=== PATIENT | male | born 1965 | race Caucasian/White ===

== ENCOUNTER 2019-08-26 14:10 | Inpatient (IN) | payer OTHER ==
[~2019-08-26] VITALS: Ht 175.3 cm; Wt 124.1 kg
[2019-08-26 15:20] LABS: BASOPHILS % (AUTO) 0.5 % (0-1); EOSINOPHILS # (AUTO) 0.1 X10'3 (0-0.9); HEMOGLOBIN 17.4 g/dl (14.0-17.9); LYMPHOCYTES # (AUTO) 1.8 X10'3 (1.1-4.8); MEAN CORPUSCULAR HEMOGLOBIN 30.2 PG (27.0-31.0); MEAN CORPUSCULAR HGB CONC 34.7 g/dL (33.0-36.5); MEAN PLATELET VOLUME 8.2 FL (7.4-10.4); MONOCYTES # (AUTO) 0.8 X10'3 (0-0.9); MONOCYTES % (AUTO) 8.1 % (2-12); NEUTROPHILS # (AUTO) 6.7 X10'3 (1.8-7.7); NEUTROPHILS % (AUTO) 71.4 % (42-75); PLATELET COUNT 300 X10'3 (140-440); RED BLOOD COUNT 5.75 X10'6 (4.70-6.10); RED CELL DISTRIBUTION WIDTH 13.8 % (11.5-14.5); WHITE BLOOD COUNT 9.3 X10'3 (4.5-11.0)
[2019-08-26 15:28] LABS: ALANINE AMINOTRANSFERASE 53 U/L (12-78); ALBUMIN 3.6 G/DL (3.4-5.0); ALBUMIN/GLOBULIN RATIO 0.8 (1.1-1.5); ALKALINE PHOSPHATASE 90 IU/L (46-116); ANION GAP 10 (8-16); ASPARTATE AMINO TRANSFERASE 26 U/L (10-37); BILIRUBIN,TOTAL 0.3 MG/DL (0.1-1.0); BLOOD UREA NITROGEN 10 MG/DL (7-18); BUN/CREATININE RATIO 10.1 (5.4-32.0); CALCIUM 8.7 MG/DL (8.5-10.1); CHLORIDE 103 MMOL/L (99-107); CREATININE 0.99 MG/DL (0.60-1.10); GLUCOSE 141 MG/DL (70-104); POTASSIUM 4.2 MMOL/L (3.5-5.1); SODIUM 137 MMOL/L (135-145); TOTAL CARBON DIOXIDE 24.5 MMOL/L (24-32); TOTAL PROTEIN 7.9 G/DL (6.4-8.2); eGFR 79 ML/MIN
[2019-08-26 17:01] LABS: CLARITY,URINE CLEAR (Clear); COLOR,URINE YELLOW (Yellow); GLUCOSE, URINE NEGATIVE (Neg); KETONES,URINE NEGATIVE (Neg); LEUKOCYTE ESTERASE ,URINE NEGATIVE (Neg); NITRITES, URINE NEGATIVE (Neg); OCCULT BLOOD,URINE NEGATIVE (Neg); PROTEIN,URINE NEGATIVE (Neg); UROBILINOGEN,URINE 0.2 E.U/dL (0.2-1.0)
[2019-08-26 17:03] LABS: UA COLLECTION TYPE VOIDED
[2019-08-26 17:07] LABS: LIPASE 812 U/L (73-393)
[2019-08-26] MEDS ORDERED: meclizine 12.5mg tablet PO ONE (17:30)
[2019-08-26] MEDS ORDERED: LORazepam 1 MG tablet PO ONE (17:30)
[2019-08-26] MEDS ORDERED: normal saline 1000ML IV soln IVB ONE (17:35)
[2019-08-26] MEDS ORDERED: ketorolac tromethamine 15mg/ml inj. IV ONE (17:40)
[2019-08-26] MEDS ORDERED: magnesium hydroxide 30ml (MOM) UD suspension PO PRN (20:10)
[2019-08-26] MEDS ORDERED: magnesium 2GM in 50ml NS 50 ML IV PRN (20:10)
[2019-08-26] MEDS ORDERED: mag hydrox/Alum hydrox/simeth 30ml oral suspension PO PRN (20:10)
[2019-08-26] MEDS ORDERED: ketorolac trometh. 30mg/ml inj. IV PRN (20:10)
[2019-08-26] MEDS ORDERED: potassium CL 10mEq/100ml bag 100 ML IV PRN ×2 (20:10)
[2019-08-26] MEDS ORDERED: diphenhydrAMINE 50 mg/ml inj IV PRN (20:10)
[2019-08-26] MEDS ORDERED: magnesium Cl slow-release 64mg tablet PO PRN (20:10)
[2019-08-26] MEDS ORDERED: ondansetron/PF 4mg/2ml inj IV PRN (20:10)
[2019-08-26] MEDS ORDERED: potassium Cl 20 mEq SR tablet PO PRN ×2 (20:10)
[2019-08-26] MEDS ORDERED: magnesium 4gm in 100ml NS 100 ML IV PRN (20:10)
[2019-08-26] MEDS ORDERED: morphine 2 MG/ML inj. syringe IV ONE (20:25)
[2019-08-26] MEDS: normal saline 1000ml 1,000 ML IV SCH (20:45)
[2019-08-26] MEDS ORDERED: LISI40TA4 PO (21:47)
[2019-08-26 22:10] VITALS: BP 135/83
[2019-08-27] MEDS: morphine 4 MG/ML inj SYRINge IV PRN ×2 (03:07→17:57)
[2019-08-27] MEDS: normal saline 1000ml 1,000 ML IV SCH ×2 (05:22→20:11)
[2019-08-27] MEDS ORDERED: cyclobenzaprine 10mg tablet PO PRN (05:30)
[2019-08-27 06:00] VITALS: BP 107/53
[2019-08-27 07:17] LABS: BASOPHILS % (AUTO) 0.3 % (0-1); EOSINOPHILS # (AUTO) 0.2 X10'3 (0-0.9); HEMATOCRIT 44.5 % (42.0-52.0); LYMPHOCYTES # (AUTO) 2.2 X10'3 (1.1-4.8); LYMPHOCYTES % (AUTO) 25.1 % (21-51); MEAN CORPUSCULAR HEMOGLOBIN 29.5 PG (27.0-31.0); MEAN CORPUSCULAR HGB CONC 33.6 g/dL (33.0-36.5); MEAN CORPUSCULAR VOLUME 87.6 FL (78-98); MEAN PLATELET VOLUME 8.3 FL (7.4-10.4); MONOCYTES # (AUTO) 0.8 X10'3 (0-0.9); MONOCYTES % (AUTO) 9.5 % (2-12); NEUTROPHILS # (AUTO) 5.4 X10'3 (1.8-7.7); NEUTROPHILS % (AUTO) 63.1 % (42-75); PLATELET COUNT 263 X10'3 (140-440); RED BLOOD COUNT 5.08 X10'6 (4.70-6.10); RED CELL DISTRIBUTION WIDTH 14.3 % (11.5-14.5); WHITE BLOOD COUNT 8.6 X10'3 (4.5-11.0)
[2019-08-27 07:24] LABS: CHLORIDE 105 MMOL/L (99-107); GLUCOSE 97 MG/DL (70-104); POTASSIUM 4.1 MMOL/L (3.5-5.1); SODIUM 138 MMOL/L (135-145); TOTAL CARBON DIOXIDE 25.9 MMOL/L (24-32)
[2019-08-27 07:25] LABS: ALANINE AMINOTRANSFERASE 47 U/L (12-78); ALBUMIN 3.1 G/DL (3.4-5.0); ALBUMIN/GLOBULIN RATIO 0.9 (1.1-1.5); ALKALINE PHOSPHATASE 73 IU/L (46-116); ANION GAP 7 (8-16); ASPARTATE AMINO TRANSFERASE 27 U/L (10-37); BILIRUBIN,TOTAL 0.4 MG/DL (0.1-1.0); BLOOD UREA NITROGEN 9 MG/DL (7-18); BUN/CREATININE RATIO 9.7 (5.4-32.0); CREATININE 0.93 MG/DL (0.60-1.10); TOTAL PROTEIN 6.6 G/DL (6.4-8.2); eGFR 85 ML/MIN
[2019-08-27 07:26] LABS: PHOSPHORUS 3.6 MG/DL (2.3-4.5)
[2019-08-27] MEDS: K and/or MAG REPLACEMENT MC SCH ×2 (08:00→20:00)
[2019-08-27 09:52] LABS: LIPASE 116 U/L (73-393)
[2019-08-27 10:00] VITALS: BP 125/70
[2019-08-27] MEDS ORDERED: dextrose ORAL solution 15 GM/59 ML bottle PO PRN ×2 (10:15)
[2019-08-27] MEDS ORDERED: glucagon, human recombinant 1mg kit SUBCUT PRN (10:15)
[2019-08-27] MEDS ORDERED: dextrose 50%-water 50ml dispensing syringe IV PRN ×2 (10:15)
[2019-08-27] MEDS ORDERED: insulin Lispro (HumaLOG) vial - multi-dose SQ SCH (10:15)
[2019-08-27 11:18] LABS: CHOL/HDL RATIO 4.3 (0.00-4.99); CHOLESTEROL 138 MG/DL (0-200); HDL CHOLESTEROL 32 MG/DL (35-60); LDL CHOLESTEROL 92 MG/DL (50-100); TRIGLYCERIDES 139 MG/DL (20-135)
[2019-08-27] MEDS: enoxaparin 40mg/0.4ml syringe SQ SCH (13:08)
[2019-08-27] MEDS: pantoprazole 40 MG vial IV SCH (13:08)
[2019-08-27] MEDS: lisinopril 20mg tablet PO SCH (17:58)
[2019-08-27] MEDS: docusate sod 100mg capsule PO SCH ×2 (17:58→20:12)
[2019-08-27 18:00] VITALS: BP 115/59
--- NOTE | 2019-08-27 18:00 | NUR ---
RECEIVED REPORT FROM CLARISSE LUNA AND ASSUMED PATIENT CARE
--- NOTE | 2019-08-27 18:29 | NUR ---
Problems reprioritized. Patient report given, questions answered & plan of care reviewed with Sean LUNA. Addendum: 08/27/19 at 1829 by Pamela Robin RN Yadira LUNA
[2019-08-27] MEDS ORDERED: insulin glargine (Lantus) pen - multi-dose SQ SCH (21:00)
[2019-08-27 22:00] VITALS: BP 100/58
[2019-08-28] MEDS: normal saline 1000ml 1,000 ML IV SCH ×2 (02:08→12:08)
[2019-08-28 06:00] VITALS: BP 90/52
--- NOTE | 2019-08-28 06:18 | NUR ---
REPORT GIVEN TO OLIVE LUNA
--- NOTE | 2019-08-28 06:30 | NUR ---
Patient in room ORTHO 4010. I have received report from Yadira LUNA and had the opportunity to ask questions and assume patient care.
--- NOTE | 2019-08-28 06:38 | NUR ---
Patient in room ORTHO 4010. I have received report from Yadira LUNA and had the opportunity to ask questions and assume patient care.
[2019-08-28 07:40] LABS: BASOPHILS % (AUTO) 0.4 % (0-1); EOSINOPHILS # (AUTO) 0.1 X10'3 (0-0.9); EOSINOPHILS % (AUTO) 1.2 % (0-6); HEMATOCRIT 45.6 % (42.0-52.0); HEMOGLOBIN 15.6 g/dl (14.0-17.9); LYMPHOCYTES # (AUTO) 1.4 X10'3 (1.1-4.8); LYMPHOCYTES % (AUTO) 18.9 % (21-51); MEAN CORPUSCULAR HEMOGLOBIN 30.3 PG (27.0-31.0); MEAN CORPUSCULAR HGB CONC 34.1 g/dL (33.0-36.5); MEAN CORPUSCULAR VOLUME 88.7 FL (78-98); MEAN PLATELET VOLUME 7.8 FL (7.4-10.4); MONOCYTES # (AUTO) 0.8 X10'3 (0-0.9); MONOCYTES % (AUTO) 10.1 % (2-12); NEUTROPHILS # (AUTO) 5.2 X10'3 (1.8-7.7); NEUTROPHILS % (AUTO) 69.4 % (42-75); PLATELET COUNT 236 X10'3 (140-440); RED BLOOD COUNT 5.14 X10'6 (4.70-6.10); RED CELL DISTRIBUTION WIDTH 14.1 % (11.5-14.5); WHITE BLOOD COUNT 7.5 X10'3 (4.5-11.0)
[2019-08-28] MEDS: docusate sod 100mg capsule PO SCH (07:56)
[2019-08-28] MEDS: pantoprazole 40 MG vial IV SCH (07:56)
[2019-08-28] MEDS: enoxaparin 40mg/0.4ml syringe SQ SCH (07:57)
[2019-08-28] MEDS: lisinopril 20mg tablet PO SCH (07:58)
[2019-08-28 07:59] LABS: ALANINE AMINOTRANSFERASE 48 U/L (12-78); ALBUMIN 3.1 G/DL (3.4-5.0); ALBUMIN/GLOBULIN RATIO 0.8 (1.1-1.5); ALKALINE PHOSPHATASE 74 IU/L (46-116); ANION GAP 8 (8-16); ASPARTATE AMINO TRANSFERASE 35 U/L (10-37); BILIRUBIN,TOTAL 0.4 MG/DL (0.1-1.0); BLOOD UREA NITROGEN 7 MG/DL (7-18); BUN/CREATININE RATIO 7.4 (5.4-32.0); CALCIUM 8.6 MG/DL (8.5-10.1); CHLORIDE 107 MMOL/L (99-107); CREATININE 0.95 MG/DL (0.60-1.10); GLUCOSE 108 MG/DL (70-104); MAGNESIUM 2.2 MG/DL (1.5-2.4); PHOSPHORUS 3.4 MG/DL (2.3-4.5); POTASSIUM 4.3 MMOL/L (3.5-5.1); SODIUM 139 MMOL/L (135-145); TOTAL PROTEIN 6.9 G/DL (6.4-8.2); eGFR 83 ML/MIN
[2019-08-28] MEDS: K and/or MAG REPLACEMENT MC SCH (08:00)
[2019-08-28] MEDS: morphine 4 MG/ML inj SYRINge IV PRN (08:08)
[2019-08-28 10:00] VITALS: BP 107/51
[2019-08-28] MEDS ORDERED: METF-950 PO (10:43)
[2019-08-28] MEDS ORDERED: PANT-47 PO (10:43)
[2019-08-28] MEDS ORDERED: bisacodyl 10mg suppository rectal RC STA (11:09)
[2019-08-28] MEDS ORDERED: HYDROcodone/acetaminophen 5mg/325mg tablet PO PRN (11:10)
[2019-08-28 11:37] LABS: LIPASE 133 U/L (73-393)
--- NOTE | 2019-08-28 12:00 | NUR ---
Priyanka, 5199, [place], Lipase results 133
[2019-08-28] MEDS ORDERED: TRAM50TA2 PO (12:52)
--- NOTE | 2019-08-28 14:08 | NUR ---
Safe DC. All personal items with patient. Left in personal vehicle with spouse.
[2019-08-29] MEDS ORDERED: pantoprazole 40mg Tablet.DR PO SCH (07:30)
== END 2019-08-28 14:18 | disposition home or self-care (01) | DRG 440 ==
LOC: ER 14:12 → ED HOLD 20:08 → ORTHO 4S 22:27
PROVIDERS: ADMIT Family Medicine; ATTEND Family Medicine
DX: K85.90 Acute pancreatitis without necrosis or infection, unspecified (principal); E11.9 Type 2 diabetes mellitus without complications; G89.29 Other chronic pain; M54.9 Dorsalgia, unspecified; I10 Essential (primary) hypertension; Z79.899 Other long term (current) drug therapy; Z88.8 Allergy status to other drugs, medicaments and biological substances
CPT/HCPCS: 36415; 71045; 74176; 76700; 80053; 80061; 81003; 82948; 83036; 83690; 83735; 84100; 84484; 85025; 87081; 93005; 96360; 96361; 99285; C9113; G0378; J1650; J1815; J2270; J7030; J8597

== ENCOUNTER 2019-09-03 12:18 | Inpatient (IN) | payer BC, OTHER ==
[~2019-09-03] VITALS: Ht 175.3 cm; Wt 120.8 kg
[~2019-09-03 12:18] MED LIST: LISI40TA4 PO; METF-950 PO; PANT-47 PO; TRAM50TA2 PO
[2019-09-03 12:47] LABS: BASOPHILS # (AUTO) 0.1 X10'3 (0-0.2); BASOPHILS % (AUTO) 0.5 % (0-1); EOSINOPHILS # (AUTO) 0.1 X10'3 (0-0.9); EOSINOPHILS % (AUTO) 0.4 % (0-6); HEMATOCRIT 50.9 % (42.0-52.0); HEMOGLOBIN 17.3 g/dl (14.0-17.9); LYMPHOCYTES # (AUTO) 2.1 X10'3 (1.1-4.8); LYMPHOCYTES % (AUTO) 17.2 % (21-51); MEAN CORPUSCULAR HEMOGLOBIN 29.8 PG (27.0-31.0); MEAN CORPUSCULAR VOLUME 87.5 FL (78-98); MEAN PLATELET VOLUME 8.4 FL (7.4-10.4); NEUTROPHILS # (AUTO) 8.8 X10'3 (1.8-7.7); NEUTROPHILS % (AUTO) 73.9 % (42-75); PLATELET COUNT 330 X10'3 (140-440); RED BLOOD COUNT 5.82 X10'6 (4.70-6.10); RED CELL DISTRIBUTION WIDTH 13.9 % (11.5-14.5); WHITE BLOOD COUNT 11.9 X10'3 (4.5-11.0)
[2019-09-03 13:09] LABS: ALANINE AMINOTRANSFERASE 66 U/L (12-78); AMYLASE 260 U/L (25-115); ANION GAP 12 (8-16); ASPARTATE AMINO TRANSFERASE 43 U/L (10-37); BILIRUBIN,TOTAL 0.5 MG/DL (0.1-1.0); CHLORIDE 103 MMOL/L (99-107); CREATININE 1.05 MG/DL (0.60-1.10); LIPASE 959 U/L (73-393); SODIUM 138 MMOL/L (135-145); TOTAL CARBON DIOXIDE 22.9 MMOL/L (24-32); TOTAL PROTEIN 8.3 G/DL (6.4-8.2); eGFR 74 ML/MIN
[2019-09-03 13:26] LABS: ALBUMIN 4.1 G/DL (3.4-5.0); ALKALINE PHOSPHATASE 80 IU/L (46-116); BLOOD UREA NITROGEN 11 MG/DL (7-18); BUN/CREATININE RATIO 10.5 (5.4-32.0); CALCIUM 9.1 MG/DL (8.5-10.1); GLUCOSE 106 MG/DL (70-104)
[2019-09-03 14:47] LABS: CLARITY,URINE CLEAR (Clear); COLOR,URINE YELLOW (Yellow); GLUCOSE, URINE NEGATIVE (Neg); KETONES,URINE NEGATIVE (Neg); LEUKOCYTE ESTERASE ,URINE NEGATIVE (Neg); NITRITES, URINE NEGATIVE (Neg); OCCULT BLOOD,URINE NEGATIVE (Neg); PH,URINE 5.5 (4.8-8.0); PROTEIN,URINE TRACE mg/dl (Neg); UROBILINOGEN,URINE 0.2 E.U/dL (0.2-1.0)
[2019-09-03 14:48] LABS: UA COLLECTION TYPE VOIDED
[2019-09-03 14:58] LABS: BACTERIA,URINE NONE SEEN /HPF (Neg); MUCUS STRANDS MODERATE /LPF (Neg); RBC,URINE NONE SEEN /HPF (0-2); SQUAMOUS EPITHELIAL CELL,UR FEW /LPF (FEW); WBC,URINE 0-4 /HPF (0-4)
[2019-09-03 14:59] LABS: COARSE GRANULAR CAST 0-3 /LPF (NEGATIVE)
[2019-09-03] MEDS ORDERED: fentaNYL/PF 50MCG/1 ML 2ML syringe IV ONE ×2 (15:40→17:15)
[2019-09-03] MEDS ORDERED: ondansetron/PF 4mg/2ml inj IV ONE (15:40)
[2019-09-03] MEDS ORDERED: dexamethasone sod phosphate 10mg/ml inj IV STA (16:16)
[2019-09-03] MEDS ORDERED: diphenhydrAMINE 50 mg/ml inj IV ONE (16:20)
[2019-09-03] MEDS ORDERED: iohexol 300mg/ml 100ml inj. ONE (16:35)
[2019-09-03] MEDS ORDERED: MESSAGE TO NURSING PO ONE (17:10)
[2019-09-03] MEDS ORDERED: metoclopramide 5 mg/ml inj IV ONE (17:15)
[2019-09-03] MEDS ORDERED: LORazepam 2 mg/ml vial IV ONE (17:15)
[2019-09-03] MEDS ORDERED: morphine 2 MG/ML inj. syringe IV PRN (17:35)
[2019-09-03] MEDS ORDERED: magnesium hydroxide 30ml (MOM) UD suspension PO PRN (17:35)
[2019-09-03] MEDS ORDERED: METF-436 PO (17:37)
[2019-09-03] MEDS ORDERED: TRAM50TA2 PO (17:37)
[2019-09-03] MEDS: normal saline 1000ml 1,000 ML IV SCH (18:38)
[2019-09-03] MEDS ORDERED: traMADol 50MG tablet PO PRN (19:00)
[2019-09-03 21:00] VITALS: BP 137/76
--- NOTE | 2019-09-03 21:00 | NUR ---
Received report from Keiko LUNA. Will assume patient care.
[2019-09-03] MEDS: heparin, porcine 5000 units/ml vial SQ SCH (21:39)
[2019-09-03] MEDS: morphine 2 MG/ML inj. syringe IV PRN (21:40)
[2019-09-04] VITALS: BP 109/71
[2019-09-04] MEDS: morphine 2 MG/ML inj. syringe IV PRN ×7 (01:51→22:20)
[2019-09-04] MEDS: normal saline 1000ml 1,000 ML IV SCH ×2 (04:18→14:57)
[2019-09-04] MEDS ORDERED: MECL-159 PO ×2 (05:11→05:18)
--- NOTE | 2019-09-04 05:30 | NUR ---
Patient got up this morning to ambulate. Afterwards complained of dizziness and vertigo laying down in bed. Patient states when he was here on August 26, he was having veritigo and MD prescribed him with meclizine. Dr. Hoyos notified, and order PRN Meclizine for his dizziness/vertigo.
[2019-09-04 05:48] LABS: BASOPHILS % (AUTO) 0.2 % (0-1); EOSINOPHILS % (AUTO) 0 % (0-6); HEMATOCRIT 47.2 % (42.0-52.0); HEMOGLOBIN 16.1 g/dl (14.0-17.9); LYMPHOCYTES # (AUTO) 1.1 X10'3 (1.1-4.8); LYMPHOCYTES % (AUTO) 9.7 % (21-51); MEAN CORPUSCULAR HEMOGLOBIN 30.2 PG (27.0-31.0); MEAN CORPUSCULAR HGB CONC 34.2 g/dL (33.0-36.5); MEAN CORPUSCULAR VOLUME 88.3 FL (78-98); MEAN PLATELET VOLUME 8.4 FL (7.4-10.4); MONOCYTES # (AUTO) 0.2 X10'3 (0-0.9); MONOCYTES % (AUTO) 2.2 % (2-12); NEUTROPHILS # (AUTO) 9.8 X10'3 (1.8-7.7); NEUTROPHILS % (AUTO) 87.9 % (42-75); PLATELET COUNT 269 X10'3 (140-440); RED BLOOD COUNT 5.35 X10'6 (4.70-6.10); RED CELL DISTRIBUTION WIDTH 13.8 % (11.5-14.5); WHITE BLOOD COUNT 11.2 X10'3 (4.5-11.0)
[2019-09-04 05:55] LABS: ALBUMIN 3.4 G/DL (3.4-5.0); ANION GAP 12 (8-16); BLOOD UREA NITROGEN 11 MG/DL (7-18); BUN/CREATININE RATIO 12.5 (5.4-32.0); CALCIUM 9.1 MG/DL (8.5-10.1); CHLORIDE 103 MMOL/L (99-107); CREATININE 0.88 MG/DL (0.60-1.10); GLUCOSE 138 MG/DL (70-104); POTASSIUM 4.6 MMOL/L (3.5-5.1); SODIUM 133 MMOL/L (135-145); TOTAL CARBON DIOXIDE 17.9 MMOL/L (24-32); eGFR 90 ML/MIN
[2019-09-04] MEDS: meclizine 12.5mg tablet PO PRN (05:58)
--- NOTE | 2019-09-04 06:24 | NUR ---
Problems reprioritized. Patient report given, questions answered & plan of care reviewed with Cecilia LUNA.
[2019-09-04 07:00] VITALS: BP 98/56
[2019-09-04] MEDS: lisinopril 20mg tablet PO SCH (07:32)
[2019-09-04] MEDS: heparin, porcine 5000 units/ml vial SQ SCH ×2 (07:41→20:17)
[2019-09-04 11:00] VITALS: BP 120/80
[2019-09-04] MEDS: ondansetron/PF 4mg/2ml inj IV PRN ×2 (12:50→22:20)
[2019-09-04] MEDS: mag hydrox/Alum hydrox/simeth 30ml oral suspension PO PRN ×2 (16:02→22:19)
--- NOTE | 2019-09-04 16:55 | NUR ---
Student documentation: Anuradha Pham RN with [facility], reviewed all interventions, assessments performed and documented by Cheryl TUBBS.
--- NOTE | 2019-09-04 17:32 | NUR ---
Initial: Pt admit w/ acute pancreatitis lipase 959 and amylase 260 both elevated. Hx new DX T2DM prior admit last week per EMR; no nutrition consult prior admit last week so not seen by RD. No lipid panel this admit though last week admit only TG slight elevation at 139. Pt seen by RD for written/verbal DM and pancreatitis diet eds w/ RD and CDE course contact information provided. RD provided thorough review of DM diet guidelines, signs/symptoms of hypo/hyperglycemia, importance of routine GLU checks, taking DM medication per Rx, ketone test strips, appropriate snacks, high protien foods, and proper hydration. Pt reports ate fast food and listed many high-fat meats as main diet following recent discharge. RD also educated pt on all fat-containing foods regarding pancreatitis nutrition therapy and answered pt diet questions/concerns. Pt reports no further diet questions at this time. Currently NPO w/ LBM 09/02. Will monitor for PO diet advancement and tolerance. Rec: 1. advance diet per MD to carb controlled/heart healthy/low fat 2. monitor for ONS needs once diet advances 3. bowel care as needed 4. wt per rx Addendum: 09/04/19 at [address] Amended: Links added.
--- NOTE | 2019-09-04 18:30 | NUR ---
Patient in room NICOLLE 348. I have received report from Cecilia LUNA and had the opportunity to ask questions and assume patient care.
--- NOTE | 2019-09-04 18:39 | NUR ---
Problems reprioritized. Patient report given, questions answered & plan of care reviewed with JEREMY Durán.
[2019-09-04 20:00] VITALS: BP 123/73
[2019-09-05] VITALS: BP 93/50
[2019-09-05] MEDS: normal saline 1000ml 1,000 ML IV SCH ×3 (00:14→20:04)
[2019-09-05 05:24] LABS: BASOPHILS % (AUTO) 0.2 % (0-1); EOSINOPHILS % (AUTO) 0.1 % (0-6); HEMATOCRIT 42.9 % (42.0-52.0); HEMOGLOBIN 14.7 g/dl (14.0-17.9); LYMPHOCYTES % (AUTO) 20.1 % (21-51); MEAN CORPUSCULAR HEMOGLOBIN 30.3 PG (27.0-31.0); MEAN CORPUSCULAR HGB CONC 34.2 g/dL (33.0-36.5); MEAN CORPUSCULAR VOLUME 88.5 FL (78-98); MEAN PLATELET VOLUME 8.7 FL (7.4-10.4); MONOCYTES # (AUTO) 0.9 X10'3 (0-0.9); MONOCYTES % (AUTO) 9.1 % (2-12); NEUTROPHILS % (AUTO) 70.5 % (42-75); PLATELET COUNT 275 X10'3 (140-440); RED BLOOD COUNT 4.85 X10'6 (4.70-6.10); RED CELL DISTRIBUTION WIDTH 13.8 % (11.5-14.5)
[2019-09-05 05:59] LABS: ALBUMIN 3.2 G/DL (3.4-5.0); ANION GAP 6 (8-16); BLOOD UREA NITROGEN 14 MG/DL (7-18); BUN/CREATININE RATIO 14.6 (5.4-32.0); CALCIUM 7.9 MG/DL (8.5-10.1); CHLORIDE 105 MMOL/L (99-107); CREATININE 0.96 MG/DL (0.60-1.10); GLUCOSE 88 MG/DL (70-104); LIPASE 104 U/L (73-393); SODIUM 139 MMOL/L (135-145); TOTAL CARBON DIOXIDE 27.8 MMOL/L (24-32); eGFR 82 ML/MIN
--- NOTE | 2019-09-05 06:25 | NUR ---
Patient in room NICOLLE 348. I have received report from JEREMY Durán and had the opportunity to ask questions and assume patient care.
--- NOTE | 2019-09-05 06:30 | NUR ---
Problems reprioritized. Patient report given, questions answered & plan of care reviewed with Carlene LUNA.
[2019-09-05] MEDS: pantoprazole 40mg Tablet.DR PO SCH (07:15)
[2019-09-05] MEDS: lisinopril 20mg tablet PO SCH (07:17)
[2019-09-05] MEDS: heparin, porcine 5000 units/ml vial SQ SCH ×2 (07:18→20:05)
[2019-09-05] MEDS: morphine 2 MG/ML inj. syringe IV PRN (07:30)
[2019-09-05 08:05] VITALS: BP 111/64
[2019-09-05] MEDS: ondansetron/PF 4mg/2ml inj IV PRN (09:30)
[2019-09-05 12:00] VITALS: BP_SYST 59
[2019-09-05] MEDS: meclizine 12.5mg tablet PO PRN (15:37)
[2019-09-05 15:39] LABS: CLARITY,URINE CLEAR (Clear); COLOR,URINE YELLOW (Yellow); GLUCOSE, URINE NEGATIVE (Neg); KETONES,URINE NEGATIVE (Neg); LEUKOCYTE ESTERASE ,URINE NEGATIVE (Neg); NITRITES, URINE NEGATIVE (Neg); OCCULT BLOOD,URINE NEGATIVE (Neg); PROTEIN,URINE NEGATIVE (Neg)
[2019-09-05 15:40] LABS: UA COLLECTION TYPE VOIDED
[2019-09-05 18:15] VITALS: BP 104/60
--- NOTE | 2019-09-05 18:40 | NUR ---
Patient in room NICOLLE 341. I have received report from JEREMY Concepcion and had the opportunity to ask questions and assume patient care.
--- NOTE | 2019-09-05 18:42 | NUR ---
Problems reprioritized. Patient report given, questions answered & plan of care reviewed with JEREMY Álvarez. Pt started clear liquid diet for lunch. c/o diarrhea x4 this afternoon. will continue to monitor.
[2019-09-05] MEDS: metFORMIN 500mg tablet PO SCH (20:04)
[2019-09-06 00:15] VITALS: BP 98/57
[2019-09-06] MEDS: normal saline 1000ml 1,000 ML IV SCH (05:22)
[2019-09-06 05:43] LABS: BASOPHILS % (AUTO) 0.3 % (0-1); EOSINOPHILS # (AUTO) 0.1 X10'3 (0-0.9); EOSINOPHILS % (AUTO) 0.8 % (0-6); HEMATOCRIT 42.2 % (42.0-52.0); HEMOGLOBIN 14.3 g/dl (14.0-17.9); LYMPHOCYTES # (AUTO) 2.3 X10'3 (1.1-4.8); LYMPHOCYTES % (AUTO) 30.9 % (21-51); MEAN CORPUSCULAR HEMOGLOBIN 30.1 PG (27.0-31.0); MEAN CORPUSCULAR HGB CONC 33.9 g/dL (33.0-36.5); MEAN CORPUSCULAR VOLUME 88.8 FL (78-98); MEAN PLATELET VOLUME 8.9 FL (7.4-10.4); MONOCYTES # (AUTO) 0.8 X10'3 (0-0.9); MONOCYTES % (AUTO) 10.2 % (2-12); NEUTROPHILS # (AUTO) 4.3 X10'3 (1.8-7.7); NEUTROPHILS % (AUTO) 57.8 % (42-75); PLATELET COUNT 217 X10'3 (140-440); RED BLOOD COUNT 4.76 X10'6 (4.70-6.10); RED CELL DISTRIBUTION WIDTH 13.8 % (11.5-14.5); WHITE BLOOD COUNT 7.4 X10'3 (4.5-11.0)
[2019-09-06 05:57] LABS: ANION GAP 7 (8-16); BLOOD UREA NITROGEN 9 MG/DL (7-18); BUN/CREATININE RATIO 10.3 (5.4-32.0); CALCIUM 7.9 MG/DL (8.5-10.1); CHLORIDE 109 MMOL/L (99-107); CREATININE 0.87 MG/DL (0.60-1.10); GLUCOSE 77 MG/DL (70-104); SODIUM 141 MMOL/L (135-145); TOTAL CARBON DIOXIDE 25.5 MMOL/L (24-32); eGFR > 90 ML/MIN
--- NOTE | 2019-09-06 06:15 | NUR ---
Problems reprioritized. Patient report given, questions answered & plan of care reviewed with JEREMY Roblero.
[2019-09-06 07:03] VITALS: BP 117/62
[2019-09-06] MEDS: metFORMIN 500mg tablet PO SCH (07:48)
[2019-09-06] MEDS: lisinopril 20mg tablet PO SCH (07:48)
[2019-09-06] MEDS: pantoprazole 40mg Tablet.DR PO SCH (07:48)
[2019-09-06] MEDS: heparin, porcine 5000 units/ml vial SQ SCH (07:49)
[2019-09-06] MEDS: ondansetron/PF 4mg/2ml inj IV PRN (09:28)
[2019-09-06] MEDS ORDERED: OMEP20CA15 PO (11:42)
[2019-09-06] MEDS ORDERED: ONDA4TAB6 PO (11:42)
[2019-09-06] MEDS ORDERED: LISI-600 PO (11:42)
[2019-09-06 12:00] VITALS: BP 120/50
--- NOTE | 2019-09-06 13:26 | NUR ---
PT DISCHARGED IN STABLE CONDITION. LEFT FACILITY IN PRIVATE VEHICLE WITH . IV DC CANULA INTACT. FOLLOW UP INSTRUCTIONS GIVEN ALL QUESTIONS ANSWERED. ALL BELONGINGS IN HAND. Addendum: 09/06/19 at 1327 by Belia Stark RN Amended: Links added.
== END 2019-09-06 14:14 | disposition home or self-care (01) | DRG 440 ==
LOC: ER 12:18 → ED HOLD 17:34 → SUR 3N 20:59
PROVIDERS: ADMIT Family Medicine; ATTEND Internal Medicine
DX: K85.90 Acute pancreatitis without necrosis or infection, unspecified (principal); E11.9 Type 2 diabetes mellitus without complications; K86.1 Other chronic pancreatitis; E66.01 Morbid (severe) obesity due to excess calories; I10 Essential (primary) hypertension; Z87.442 Personal history of urinary calculi; Z68.39 Body mass index [BMI] 39.0-39.9, adult; Z88.8 Allergy status to other drugs, medicaments and biological substances
CPT/HCPCS: 36415; 74177; 80048; 80053; 81001; 81003; 82150; 82948; 83605; 83690; 84145; 85025; 87040; 87081; 96374; 96375; 96376; 99285; G0378; J1100; J1200; J1644; J2060; J2270; J2405; J2765; J3010; J7030; J8597; Q9967

== ENCOUNTER 2019-11-19 07:57 | Inpatient (IN) | payer BC, OTHER ==
[~2019-11-19] VITALS: Ht 175.3 cm; Wt 116.0 kg
[~2019-11-19 07:57] MED LIST changes: -LISI40TA4 PO; +MECL-159 PO; +METF-436 PO; -METF-950 PO; +OMEP20CA15 PO; +ONDA4TAB6 PO; -PANT-47 PO
[2019-11-19 08:25] LABS: BASOPHILS % (AUTO) 0.4 % (0-1); EOSINOPHILS # (AUTO) 0.1 X10'3 (0-0.9); EOSINOPHILS % (AUTO) 1.3 % (0-6); HEMATOCRIT 46.6 % (42.0-52.0); HEMOGLOBIN 15.9 g/dl (14.0-17.9); LYMPHOCYTES % (AUTO) 12.6 % (21-51); MEAN CORPUSCULAR HEMOGLOBIN 30.4 PG (27.0-31.0); MEAN CORPUSCULAR HGB CONC 34.1 g/dL (33.0-36.5); MEAN CORPUSCULAR VOLUME 89.3 FL (78-98); MEAN PLATELET VOLUME 8.5 FL (7.4-10.4); MONOCYTES # (AUTO) 0.6 X10'3 (0-0.9); MONOCYTES % (AUTO) 7.1 % (2-12); NEUTROPHILS # (AUTO) 6.5 X10'3 (1.8-7.7); NEUTROPHILS % (AUTO) 78.6 % (42-75); PLATELET COUNT 234 X10'3 (140-440); RED BLOOD COUNT 5.21 X10'6 (4.70-6.10); RED CELL DISTRIBUTION WIDTH 13.7 % (11.5-14.5); WHITE BLOOD COUNT 8.3 X10'3 (4.5-11.0)
--- NOTE | 2019-11-19 08:28 | NUR ---
TO CT AND BACK WITH PT. ELISA, STROKE RN EXAMINING PT
[2019-11-19 08:34] LABS: PARTIAL THROMBOPLASTIN TIME 30 SECONDS (22-32)
[2019-11-19 08:35] LABS: ALANINE AMINOTRANSFERASE 50 U/L (12-78); ALBUMIN 3.6 G/DL (3.4-5.0); ALKALINE PHOSPHATASE 67 IU/L (46-116); ANION GAP 10 (8-16); ASPARTATE AMINO TRANSFERASE 31 U/L (10-37); BILIRUBIN,TOTAL 0.4 MG/DL (0.1-1.0); BLOOD UREA NITROGEN 14 MG/DL (7-18); BUN/CREATININE RATIO 15.7 (5.4-32.0); CALCIUM 8.4 MG/DL (8.5-10.1); CHLORIDE 105 MMOL/L (99-107); CREATININE 0.89 MG/DL (0.60-1.10); GLUCOSE 155 MG/DL (70-104); POTASSIUM 3.9 MMOL/L (3.5-5.1); SODIUM 138 MMOL/L (135-145); TOTAL CARBON DIOXIDE 23.5 MMOL/L (24-32); TOTAL PROTEIN 7.2 G/DL (6.4-8.2); eGFR 89 ML/MIN
[2019-11-19] MEDS ORDERED: aspirin 325mg tablet PO ONE (08:35)
[2019-11-19 08:39] LABS: TROPONIN I < 0.04 NG/ML (0.0-0.05)
[2019-11-19] MEDS ORDERED: mag hydrox/Alum hydrox/simeth 30ml oral suspension PO PRN (10:10)
[2019-11-19] MEDS ORDERED: ondansetron/PF 4mg/2ml inj IV PRN (10:10)
[2019-11-19] MEDS ORDERED: magnesium hydroxide 30ml (MOM) UD suspension PO PRN (10:10)
[2019-11-19] MEDS: normal saline 1000ml 1,000 ML IV SCH ×2 (10:31→12:26)
[2019-11-19 10:37] LABS: CHOL/HDL RATIO 4.8 (0.00-4.99); CHOLESTEROL 150 MG/DL (0-200); HDL CHOLESTEROL 31 MG/DL (35-60); LDL CHOLESTEROL 103 MG/DL (50-100); TRIGLYCERIDES 110 MG/DL (20-135)
[2019-11-19 12:10] VITALS: BP 144/80
[2019-11-19] MEDS ORDERED: diphenhydrAMINE 25mg capsule PO PRN (15:40)
[2019-11-19] MEDS ORDERED: methylPREDNISolone sod succ 125mg/2ml vial IV ONE (17:25)
[2019-11-19 18:00] VITALS: BP 137/72
[2019-11-19] MEDS: heparin, porcine 5000 units/ml vial SQ SCH (20:00)
[2019-11-19 21:09] LABS: HEMOGLOBIN A1C 5.8 % (4.5-6.2)
[2019-11-19 22:00] VITALS: BP 122/61
[2019-11-20 06:00] VITALS: BP 118/65
--- NOTE | 2019-11-20 06:40 | NUR ---
REPORT GIVEN TO JEREMY DIXON.
[2019-11-20] MEDS ORDERED: LISI10TA4 PO (07:17)
[2019-11-20] MEDS ORDERED: ALBU8.5H8 INH (07:17)
[2019-11-20] MEDS ORDERED: OMEP-50 PO (07:17)
[2019-11-20] MEDS ORDERED: MECL-159 PO (07:17)
[2019-11-20] MEDS ORDERED: METF-900 PO (07:17)
[2019-11-20] MEDS ORDERED: meclizine 12.5mg tablet PO PRN (07:30)
[2019-11-20] MEDS ORDERED: albuterol 2.5 MG/3 ML nebule NEB PRN (07:45)
[2019-11-20] MEDS: aspirin 81mg tablet.DR PO SCH (08:10)
[2019-11-20] MEDS: atorvastatin 10mg tablet PO SCH (08:10)
[2019-11-20] MEDS: normal saline 1000ml 1,000 ML IV SCH ×2 (08:10→16:54)
[2019-11-20] MEDS: pantoprazole 40mg Tablet.DR PO SCH (08:11)
[2019-11-20] MEDS: metFORMIN 500mg tablet PO SCH (08:11)
[2019-11-20] MEDS: heparin, porcine 5000 units/ml vial SQ SCH ×2 (08:12→20:18)
[2019-11-20 08:18] LABS: BASOPHILS % (AUTO) 0.2 % (0-1); EOSINOPHILS % (AUTO) 0 % (0-6); HEMATOCRIT 49.1 % (42.0-52.0); HEMOGLOBIN 16.4 g/dl (14.0-17.9); LYMPHOCYTES # (AUTO) 0.8 X10'3 (1.1-4.8); LYMPHOCYTES % (AUTO) 5.1 % (21-51); MEAN CORPUSCULAR HEMOGLOBIN 29.9 PG (27.0-31.0); MEAN CORPUSCULAR HGB CONC 33.5 g/dL (33.0-36.5); MEAN CORPUSCULAR VOLUME 89.3 FL (78-98); MEAN PLATELET VOLUME 8.8 FL (7.4-10.4); MONOCYTES # (AUTO) 0.5 X10'3 (0-0.9); MONOCYTES % (AUTO) 3.1 % (2-12); NEUTROPHILS % (AUTO) 91.6 % (42-75); PLATELET COUNT 253 X10'3 (140-440); RED CELL DISTRIBUTION WIDTH 13.4 % (11.5-14.5); WHITE BLOOD COUNT 16.4 X10'3 (4.5-11.0)
[2019-11-20 08:22] LABS: ALBUMIN 3.5 G/DL (3.4-5.0); ANION GAP 8 (8-16); BLOOD UREA NITROGEN 13 MG/DL (7-18); BUN/CREATININE RATIO 14.4 (5.4-32.0); CALCIUM 8.8 MG/DL (8.5-10.1); CHLORIDE 108 MMOL/L (99-107); GLUCOSE 159 MG/DL (70-104); POTASSIUM 4.6 MMOL/L (3.5-5.1); SODIUM 138 MMOL/L (135-145); TOTAL CARBON DIOXIDE 22.1 MMOL/L (24-32); eGFR 88 ML/MIN
[2019-11-20 10:00] VITALS: BP 128/70
[2019-11-20] MEDS: predniSONE 20 mg tablet PO SCH (11:03)
--- NOTE | 2019-11-20 13:14 | NUR ---
DM Consult: Pt A1C less than 7 and not appropriate for DM ed at this time. Addendum: 11/20/19 at [address] Amended: Links added.
[2019-11-20 14:00] VITALS: BP 128/63
[2019-11-20] MEDS: diphenhydrAMINE 25mg capsule PO SCH ×2 (14:49→20:20)
[2019-11-20 18:00] VITALS: BP 111/71
--- NOTE | 2019-11-20 18:12 | NUR ---
Problems reprioritized. Patient report given, questions answered & plan of care reviewed with Bela LUNA.
[2019-11-20] MEDS ORDERED: lisinopril 10 MG tablet PO SCH (21:00)
[2019-11-20 22:00] VITALS: BP 103/41
[2019-11-21 02:00] VITALS: BP 104/53
[2019-11-21] MEDS: diphenhydrAMINE 25mg capsule PO SCH ×2 (02:14→07:59)
[2019-11-21] MEDS: normal saline 1000ml 1,000 ML IV SCH (02:18)
[2019-11-21 06:00] VITALS: BP 120/62
--- NOTE | 2019-11-21 06:21 | NUR ---
REPORT GIVEN TO JEREMY ARREOLA.
[2019-11-21] MEDS: heparin, porcine 5000 units/ml vial SQ SCH (07:59)
[2019-11-21] MEDS: metFORMIN 500mg tablet PO SCH (07:59)
[2019-11-21] MEDS: aspirin 81mg tablet.DR PO SCH (07:59)
[2019-11-21] MEDS: atorvastatin 10mg tablet PO SCH (07:59)
[2019-11-21 08:00] LABS: BASOPHILS # (AUTO) 0.1 X10'3 (0-0.2); BASOPHILS % (AUTO) 0.5 % (0-1); EOSINOPHILS % (AUTO) 0.2 % (0-6); HEMATOCRIT 48.2 % (42.0-52.0); HEMOGLOBIN 16.1 g/dl (14.0-17.9); LYMPHOCYTES # (AUTO) 2.6 X10'3 (1.1-4.8); LYMPHOCYTES % (AUTO) 18.4 % (21-51); MEAN CORPUSCULAR HGB CONC 33.4 g/dL (33.0-36.5); MEAN CORPUSCULAR VOLUME 89.7 FL (78-98); MEAN PLATELET VOLUME 8.7 FL (7.4-10.4); MONOCYTES # (AUTO) 1.1 X10'3 (0-0.9); MONOCYTES % (AUTO) 7.8 % (2-12); NEUTROPHILS # (AUTO) 10.4 X10'3 (1.8-7.7); NEUTROPHILS % (AUTO) 73.1 % (42-75); PLATELET COUNT 237 X10'3 (140-440); RED BLOOD COUNT 5.38 X10'6 (4.70-6.10); RED CELL DISTRIBUTION WIDTH 13.4 % (11.5-14.5); WHITE BLOOD COUNT 14.2 X10'3 (4.5-11.0)
[2019-11-21] MEDS: pantoprazole 40mg Tablet.DR PO SCH (08:00)
[2019-11-21] MEDS: predniSONE 20 mg tablet PO SCH (08:00)
[2019-11-21 08:09] LABS: ALBUMIN 3.4 G/DL (3.4-5.0); ANION GAP 10 (8-16); BLOOD UREA NITROGEN 15 MG/DL (7-18); BUN/CREATININE RATIO 17.9 (5.4-32.0); CALCIUM 8.4 MG/DL (8.5-10.1); CHLORIDE 108 MMOL/L (99-107); CREATININE 0.84 MG/DL (0.60-1.10); GLUCOSE 97 MG/DL (70-104); SODIUM 141 MMOL/L (135-145); TOTAL CARBON DIOXIDE 23.3 MMOL/L (24-32); eGFR > 90 ML/MIN
[2019-11-21 10:00] VITALS: BP 128/64
[2019-11-21] MEDS ORDERED: ATOR20TA PO (15:31)
[2019-11-21] MEDS ORDERED: DIPH-423 PO (15:31)
[2019-11-21] MEDS ORDERED: ASPI81TA52 PO (15:31)
[2019-11-21] MEDS ORDERED: PRED20TA PO (15:31)
--- NOTE | 2019-11-21 16:43 | NUR ---
Patient stable for discharge home today. All discharge instructions given to patient and questions answered. IV discontinued with cannula intact. Prescriptions called into [facility] in [place]
== END 2019-11-21 16:34 | disposition home health service (06) | DRG 948 ==
LOC: ER 07:57 → ED HOLD 10:06 → EDBEDREQ 11:40 → ORTHO 4S 12:00
PROVIDERS: ADMIT Family Medicine; ATTEND Family Medicine
DX: R53.1 Weakness (principal); D72.829 Elevated white blood cell count, unspecified; E11.65 Type 2 diabetes mellitus with hyperglycemia; I10 Essential (primary) hypertension; T38.0X5A Adverse effect of glucocorticoids and synthetic analogues, initial encounter; Z88.8 Allergy status to other drugs, medicaments and biological substances; Z79.899 Other long term (current) drug therapy; Z91.013 Allergy to seafood; Y92.238 Other place in hospital as the place of occurrence of the external cause
CPT/HCPCS: 36415; 70450; 70546; 70551; 71045; 80048; 80053; 80061; 82948; 83036; 84484; 85025; 85610; 85730; 87081; 92508; 92616; 93005; 93306; 93880; 96374; 97110; 97116; 97530; 99285; G0378; J1644; J2930; J7030; J7512; Q0163

== ENCOUNTER 2019-12-20 12:19 | Emergency (ER) | payer BC, OTHER ==
[~2019-12-20] VITALS: Ht 175.3 cm; Wt 115.0 kg
[~2019-12-20 12:19] MED LIST changes: +ALBU8.5H8 INH; +ASPI81TA52 PO; +ATOR20TA PO; +DIPH-423 PO; +LISI10TA4 PO; -METF-436 PO; +METF-900 PO; +OMEP-50 PO; -OMEP20CA15 PO; -ONDA4TAB6 PO; +PRED20TA PO; -TRAM50TA2 PO
[2019-12-20 12:28] VITALS: BP 136/82
--- NOTE | 2019-12-20 13:39 | NUR ---
pt. left because he did not want to wait any longer. i am holding 13 mental health pt's and am unable to move pt's.
== END 2019-12-20 13:43 | disposition left against medical advice (07) ==
LOC: ER 12:20
DX: K92.1 Melena (principal); Z53.21 Procedure and treatment not carried out due to patient leaving prior to being seen by health care provider

== ENCOUNTER 2020-01-21 09:09 | Outpatient (CLI) | payer BC, OTHER ==
[2020-01-21] VITALS (21 sets, daily range): BP systolic 108–150; BP diastolic 70–104
[~2020-01-21 09:09] MED LIST changes: -ASPI81TA52 PO; -PRED20TA PO
== END 2020-01-21 23:59 | disposition home or self-care (01) ==
LOC: CARD DIAG 09:09
PROVIDERS: ATTEND Internal Medicine Cardiovascular Disease
DX: R42 Dizziness and giddiness (principal)
CPT/HCPCS: 93660

== ENCOUNTER 2020-03-12 13:52 | Outpatient (CLI) | payer OTHER ==
[~2020-03-12] VITALS: Ht 175.3 cm; Wt 111.1 kg
[2020-03-12 14:41] LABS: ABG BASE EXCESS -0.2 mmol/L (-2.0-2.0); ABG HCO3 23.7 mmol/L (22.0-26.0); ABG OXYGEN SATURATION 96.9 % (94-97); ABG PCO2 (T) 36.8 mmHg (35.0-48.0); ABG PO2 (T) 85.3 mmHg (75.0-100.0); ALLEN'S TEST Yes; FCOHb 0.6 % (0.0-3.9); FMetHb 0.1 % (0.0-1.5); FO2Hb 96.2 % (94-97); TOTAL HEMOGLOBIN 17.4 G/dl (14.0-18.0)
[2020-03-12] MEDS ORDERED: albuterol 2.5 MG/3 ML nebule NEB PRN (15:00)
== END 2020-03-12 23:59 | disposition home or self-care (01) ==
LOC: RT 13:52
PROVIDERS: ATTEND Internal Medicine Pulmonary Disease
DX: R05 Cough (principal); R06.2 Wheezing; R06.02 Shortness of breath; R06.00 Dyspnea, unspecified
CPT/HCPCS: 36600; 82803; 85018; 94060; 94727; 94729; 94760